=== PATIENT | male | born 1985 | race Caucasian/White ===

== ENCOUNTER 2017-12-31 15:13 | Inpatient (IN) | payer SELFPAY ==
[~2017-12-31] VITALS: Ht 180.3 cm; Wt 72.6 kg
[2017-12-31] MEDS ORDERED: MORPHINE SULFATE 4 MG/ML CPJ (NOT FOR IM USE) IV STA (15:40)
[2017-12-31] MEDS ORDERED: ONDANSETRON HCL 4MG/2ML VIAL IV STA (15:40)
[2017-12-31] MEDS ORDERED: SODIUM CHLORIDE 0.9% 1,000 ML IV ONE (15:40)
[2017-12-31] MEDS ORDERED: PANTOPRAZOLE 80 MG in SODIUM CHLORIDE 0.9% 100 ML IV SCH ×2 (15:45→16:30)
[2017-12-31] MEDS ORDERED: LORAZEPAM 2MG/ML CPJ IV ONE (15:45)
[2017-12-31] MEDS ORDERED: PANTOPRAZOLE SODIUM 40 MG/VIAL IV ONE (15:45)
[2017-12-31 16:05] LABS: BASOPHILS % 0.5 % (0.0-2.0); EOSINOPHILS % 0.4 % (0.0-5.0); HEMOGLOBIN. 14.1 g/dL (14.0-18.0); LYMPHOCYTES % 20.2 % (20.0-50.0); MEAN CORPUSCULAR HEMOGLOBIN 32.6 pg (28.0-32.0); MEAN CORPUSCULAR VOLUME 94.9 fL (80.0-94.0); MEAN PLATELET VOLUME 8.1 fl (7.4-10.4); MONOCYTES % 5.7 % (2.0-8.0); NEUTROPHILS % 73.2 % (40.0-76.0); PLATELET 268 x1000/uL (130-400); RED BLOOD CELL COUNT 4.32 mill/uL (4.7-6.1); RED CELL DISTRIBUTION WIDTH 13.9 % (11.6-14.6)
[2017-12-31 16:08] LABS: CHLORIDE 105 mEq/L (98-107)
[2017-12-31 16:09] LABS: PROTHROMBIN TIME 10.4 sec (9.4-11.6)
[2017-12-31 16:13] LABS: ETHANOL BLOOD 203 mg/dL
[2017-12-31 17:25] LABS: CLARITY URINE CLEAR (CLEAR); COLOR URINE YELLOW (YELLOW); KETONES URINE NEGATIVE (NEGATIVE); LEUKOCYTE ESTERASE URINE NEGATIVE (NEGATIVE); NITRITE URINE NEGATIVE (NEGATIVE); OCCULT BLOOD URINE NEGATIVE (NEGATIVE); PROTEIN URINE NEGATIVE (NEGATIVE); SPECIFIC GRAVITY URINE 1.008 (1.005-1.030); UROBILINOGEN URINE 0.2 E.U./dL (0.2-1.0)
[2017-12-31 17:41] LABS: *AMPHETAMINES SCREEN URINE NEGATIVE (NEGATIVE); *BARBITURATES SCREEN URINE NEGATIVE (NEGATIVE); *BENZODIAZEPINES SCREEN URINE NEGATIVE (NEGATIVE); CANNABINOID URINE SCREEN NEGATIVE (NEGATIVE); OPIATES URINE SCREEN PRESUMTIVE POSITIVE (NEGATIVE); PHENCYCLIDINE URINE SCREEN NEGATIVE (NEGATIVE)
[2017-12-31 17:42] LABS: *COCAINE SCREEN URINE NEGATIVE (NEGATIVE); METHADONE URINE SCREEN NEGATIVE (NEGATIVE)
[2017-12-31] MEDS ORDERED: IOHEXOL-300 100 ML BOTTLE ONE (18:44)
[2017-12-31] MEDS ORDERED: DIPHENHYDRAMINE 50MG/ML VIAL IV PRN (20:15)
[2017-12-31] MEDS ORDERED: LORAZEPAM 2MG/ML CPJ IV PRN (20:15)
[2017-12-31] MEDS ORDERED: MAGNESIUM/ALUMINUM HYDROXIDE/SIMETHICONE 30ML UDC PO PRN (20:15)
[2017-12-31] MEDS ORDERED: ACETAMINOPHEN 325MG TABLET PO PRN (20:15)
[2017-12-31 20:45] VITALS: BP 113/72
[2017-12-31] MEDS ORDERED: KETOROLAC 30MG/ML VIAL IV PRN (21:00)
[2017-12-31] MEDS: SODIUM CHLORIDE 0.9% 1,000 ML IV SCH (22:00)
[2017-12-31 23:48] VITALS: BP 109/75
[2017-12-31 23:59] VITALS: BP 109/75
[2018-01-01] MEDS ORDERED: MVI, ADULT NO.1 10 ML, FOLIC ACID 1 MG, THIAMINE HCL 100 MG in SODIUM CHLORIDE 0.9% 1,0... IV NR ×4
[2018-01-01] MEDS: MORPHINE SULFATE 4 MG/ML CPJ (NOT FOR IM USE) IV PRN ×4 (00:14→21:35)
[2018-01-01] MEDS: ZOLPIDEM TARTRATE 5MG TABLET PO PRN ×2 (00:55→22:28)
[2018-01-01] MEDS: ONDANSETRON HCL 4MG/2ML VIAL IV PRN (03:28)
[2018-01-01 03:53] VITALS: BP 118/72
[2018-01-01] MEDS ORDERED: PNEUMOCOCCAL 23-VAL P-SAC VAC 0.5 ML IM ONE (06:00)
[2018-01-01 06:40] LABS: BASOPHILS % 0.6 % (0.0-2.0); EOSINOPHILS % 1.4 % (0.0-5.0); HEMATOCRIT. 37.6 % (42.0-52.0); HEMOGLOBIN. 12.8 g/dL (14.0-18.0); LYMPHOCYTES % 13.6 % (20.0-50.0); MEAN CORPUSCULAR HEMOGLOBIN 32.4 pg (28.0-32.0); MEAN CORPUSCULAR VOLUME 95.2 fL (80.0-94.0); MEAN PLATELET VOLUME 8.4 fl (7.4-10.4); MONOCYTES % 6.7 % (2.0-8.0); NEUTROPHILS % 77.7 % (40.0-76.0); PLATELET 209 x1000/uL (130-400); RED BLOOD CELL COUNT 3.95 mill/uL (4.7-6.1); RED CELL DISTRIBUTION WIDTH 13.7 % (11.6-14.6)
[2018-01-01] MEDS: SODIUM CHLORIDE 0.9% 1,000 ML IV SCH ×3 (07:25→22:00)
[2018-01-01 07:38] LABS: PHOSPHORUS 3.8 mg/dL (2.5-4.9)
[2018-01-01 07:50] LABS: CHLORIDE 103 mEq/L (98-107)
[2018-01-01 08:00] VITALS: BP 104/65
[2018-01-01] MEDS: PANTOPRAZOLE SODIUM 40 MG/VIAL IV SCH (08:31)
[2018-01-01] MEDS: LORAZEPAM 2MG/ML CPJ IV PRN ×3 (11:14→20:15)
[2018-01-01 12:00] VITALS: BP 108/64
[2018-01-01 16:00] VITALS: BP 112/66
[2018-01-01 20:53] VITALS: BP 123/70
[2018-01-02] VITALS: BP 121/69
[2018-01-02] MEDS: LORAZEPAM 2MG/ML CPJ IV PRN ×3 (00:40→13:47)
[2018-01-02] MEDS: MORPHINE SULFATE 4 MG/ML CPJ (NOT FOR IM USE) IV PRN ×2 (03:53→10:30)
[2018-01-02 04:00] VITALS: BP 114/71
[2018-01-02] MEDS: SODIUM CHLORIDE 0.9% 1,000 ML IV SCH ×3 (06:00→13:47)
[2018-01-02 07:01] LABS: INR 1.1; PARTIAL THROMBOPLASTIN TIME 26.7 sec (23.4-31.0); PROTHROMBIN TIME 11.4 sec (9.4-11.6)
[2018-01-02 07:11] LABS: BASOPHILS % 0.6 % (0.0-2.0); EOSINOPHILS % 3.1 % (0.0-5.0); HEMATOCRIT. 37.8 % (42.0-52.0); HEMOGLOBIN. 12.9 g/dL (14.0-18.0); LYMPHOCYTES % 20.4 % (20.0-50.0); MEAN CORPUSCULAR HEMOGLOBIN 32.8 pg (28.0-32.0); MEAN CORPUSCULAR VOLUME 96.1 fL (80.0-94.0); MEAN PLATELET VOLUME 8.5 fl (7.4-10.4); MONOCYTES % 10.5 % (2.0-8.0); NEUTROPHILS % 65.4 % (40.0-76.0); PLATELET 205 x1000/uL (130-400); RED BLOOD CELL COUNT 3.94 mill/uL (4.7-6.1)
[2018-01-02 07:50] LABS: CHLORIDE 104 mEq/L (98-107)
[2018-01-02 08:07] VITALS: BP 109/64
[2018-01-02] MEDS: PANTOPRAZOLE SODIUM 40 MG/VIAL IV SCH (08:49)
[2018-01-02] MEDS ORDERED: SODIUM CHLORIDE 0.9% 10ML VIAL ONE (11:28)
[2018-01-02 12:25] VITALS: BP 108/73
[2018-01-02] MEDS ORDERED: SIMETHICONE 40 MG/0.6 ML 30ML ONE (16:03)
[2018-01-02] MEDS ORDERED: FENTANYL CITRATE/PF 50MCG/ML 2ML VIAL ONE (16:03)
[2018-01-02] MEDS ORDERED: MIDAZOLAM HCL 5 MG/5 ML VIAL ONE (16:03)
[2018-01-02] MEDS ORDERED: MIDAZOLAM HCL 5 MG/5 ML VIAL IV PRN (16:08)
[2018-01-02] MEDS ORDERED: FENTANYL CITRATE/PF 50MCG/ML 2ML VIAL IV PRN (16:09)
[2018-01-02] MEDS: ONDANSETRON HCL 4MG/2ML VIAL IV PRN (16:59)
[2018-01-02] MEDS ORDERED: TEMAZEPAM 15MG CAPSULE PO PRN (17:00)
[2018-01-02 20:00] VITALS: BP 127/67
[2018-01-03] VITALS: BP 98/62
[2018-01-03 02:00] VITALS: BP 99/55
[2018-01-03 04:00] VITALS: BP 99/55
[2018-01-03 08:00] VITALS: BP 97/58
[2018-01-03] MEDS: PANTOPRAZOLE SODIUM 40 MG/VIAL IV SCH (09:11)
[2018-01-03] MEDS: ONDANSETRON HCL 4MG/2ML VIAL IV PRN (10:52)
[2018-01-03 12:00] VITALS: BP 129/87
[2018-01-03 12:05] VITALS: BP 122/72
== END 2018-01-03 12:30 | disposition home or self-care (01) | DRG 241 ==
LOC: ER 16:34 → 6WST 18:50 → EDBEDREQTM 18:58 → EDBEDREQ 18:58 → ENRESERV 19:52
PROVIDERS: ADMIT Internal Medicine; ATTEND Internal Medicine
PROC: 0DB68ZX Excision of Stomach, Via Natural or Artificial Opening Endoscopic, Diagnostic (ICD-10-PCS; 2018-01-02)
PROC: 0DJ68ZZ Inspection of Stomach, Via Natural or Artificial Opening Endoscopic (ICD-10-PCS; principal; 2018-01-02 16:00)
DX: K29.71 Gastritis, unspecified, with bleeding (principal); R56.9 Unspecified convulsions; K76.0 Fatty (change of) liver, not elsewhere classified; K22.10 Ulcer of esophagus without bleeding; K52.9 Noninfective gastroenteritis and colitis, unspecified; F10.129 Alcohol abuse with intoxication, unspecified; F17.200 Nicotine dependence, unspecified, uncomplicated; K44.9 Diaphragmatic hernia without obstruction or gangrene
CPT/HCPCS: 36415; 74177; 80048; 80053; 80305; 81003; 82270; 83690; 83735; 84100; 85025; 85610; 85730; 86850; 86900; 87493; 88305; 88312; 88313; 90732; 96365; 96375; 99285; C9113; G0482; J1200; J2060; J2250; J2270; J2405; J3010; J3411; J3490; J7030; J7050; Q9967